=== PATIENT | male | born 1960 | race Caucasian/White ===

== ENCOUNTER 2017-03-31 08:12 | Emergency (ER) | payer BC ==
[~2017-03-31] VITALS: Ht 175.3 cm; Wt 122.9 kg
--- NOTE | 2017-03-31 08:26 | Emergency Room Report ---
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 N Clinical Suspician of Infection? N Mental Status: 1 - Regular (Normal Baseline) Sepsis Risk:Low Sepsis Risk Have you (or family members/close friends) recently traveled outside the [place]? N If Yes, where/when: Have you had exposure to infectious disease within the past month? N TB? Other? Specify: Comment The patient complains of RIGHT lower quadrant abdominal pain that began yesterday. The pain is constant. Worsened by touch and movement. He denies other symptoms including fever, vomiting, diarrhea, constipation, or urinary symptoms. No injury recalled. He last ate some snacks during the night. ALLERGIES Coded Allergies: metformin (03/31/17) History Medical History General CAD? No Angina: No MD: No Hypertension? Yes Hyperlipidemia? No CHF? No DVT? No PE? No COPD? No Asthma? No Anemia? No GERD? No Gastric ulcers? No GI Bleed? No Hernia? No Thyroid Problems? No Hypothyroidism? No CVA? No Seizures? No Diabetes? Yes Insulin Dependent: No Insulin Pump: No Home FSBS? No End Stage Renal Disease? No UTI? No Stones? No BPH? No GB Disease: No Nephritic Syndrome? No Asplenia? No Hepatitis? No Sickle Cell Disease? No Arthritis? No Migraines? No Cataracts? No Glaucoma? No MRSA? No HIV? No TB? No Anxiety? No Depression? No Cancer? No Site: N More? No Immunization Hx DT/Tetanus Unknown Surgical Hx Previous Surgery?Y KNEE HEART CATH Social History Smoking Hx Smoker: Former Smoker Tobacco: No Type Cigarettes Alcohol Alcohol: No Review of Systems All Other Systems Reviewed and Negative Constitutional denies fever Gastrointestinal abdominal pain, denies constipation, denies diarrhea, denies vomiting Genitourinary denies: dysuria, frequency. Physical Exam Vital Signs Vital Signs Date Time Temp Pulse Resp B/P Pulse O2 O2 Flow FiO2 Ox Delivery Rate 03/31 1157 98.3 85 18 132/91 99 03/31 1133 85 18 132/91 99 03/31 1105 85 18 127/93 99 03/31 0852 77 18 143/83 95 03/31 0815 98.3 83 18 139/90 95 General Appearance no apparent distress Eye Exam - bilateral eye normal exam, bilateral eye PERRL, bilateral eye EOMI Ear, Nose, Throat hearing grossly normal, normal ENT inspection Neck normal inspection, non-tender, supple, full range of motion Respiratory Status Yes: trachea midline, chest symmetrical, non tender chest. No: respiratory distress. Lung Sounds bilateral: normal breath sounds, lungs clear. Cardiovascular normal exam, regular rate/rhythm, no peripheral edema, no gallop, no JVD, no murmur, no rub, normal peripheral pulses Peripheral Pulses Pulses normal Yes Gastrointestinal normal bowel sounds, soft, no organomegaly, no guarding, no rebound, tenderness (RIGHT lower quadrant) Extremities non-tender, normal range of motion, normal inspection Neurologic alert, oriented x 3 Mental status normal mood/affect Skin intact, normal color, warm/dry Medical Decision Making LABS/Meds/Orders Pt receiving controlled substance in ED? No Results/Orders Laboratory Tests 03/31/17 0900: Urine Color STRAW, Urine Appearance CLEAR, Urine pH 6.0, Ur Specific Mc[place] <= 1.005, Urine Protein NEGATIVE, Urine Ketones NEGATIVE, Urine Blood TRACE-INTACT, Urine Nitrate NEGATIVE, Urine Bilirubin NEGATIVE, Urine Urobilinogen 0.2, Ur Leukocyte Esterase NEGATIVE, Urine RBC OCC, Urine WBC OCC, Urine Bacteria 2+, Urine Glucose 3+ H 03/31/17 0820: Amylase 35, Lipase 164 03/31/17 0820: Sodium 134 L, Potassium 4.3, Chloride 98, Carbon Dioxide 28, BUN 18, Creatinine 1.1, Estimated Creat Clear 126, Estimated GFR (MDRD) 69, Glucose 146 H, Calcium 9.0, Total Bilirubin 0.4, AST 23, ALT 56, Alkaline Phosphatase 131 H, Total Protein 8.0, Albumin 3.9, Globulin 4.1 H, Albumin/Globulin Ratio 1.0 L, WBC 10.1, RBC 5.58, Hgb 16.0, Hct 45.9, MCV 82.4, RDW 13.1, Plt Count 187, MPV 8.1, Gran % 60.0, Gran # 6.0, Lymphocytes % 32.1, Monocytes % 5.7, Eosinophils % 1.6, Basophils % 0.5, Lymphocytes # 3.2, Monocytes # 0.6, Eosinophils # 0.2, Basophils # 0.1, PUBS MCHC 34.7, MCH 28.6 Current Medication Orders Sig/Ledy Start time Last Medication Dose Route Stop Time Status Admin Sodium Chloride 1,000 ML .STK-MED ONE 03/31 1143 DC IV Sodium Chloride 1,000 ML .STK-MED ONE 03/31 1119 DC IV Sodium Chloride 1,000 ML .Q1H1M 03/31 0945 DC 03/31 IV 03/31 1045 1121 Sodium Chloride 10 ML PRN PRN 03/31 0830 DCD IV 04/01 0824 Orders Procedure Date/time Status DIET-NOTHING BY MOUTH 03/[address] ABD/PELVIS REQ 03/31 09 Active CULTURE, URINE 03/31 0900 Active URINALYSIS/COMPLETE 03/31 0826 Complete LIPASE 03/31 0825 Complete AMYLASE 03/31 0825 Complete IV SALINE LOCK 03/31 0824 Active CBC WITH AUTO DIFF 03/31 0824 Complete CHEM 12 PROFILE 03/31 0824 Complete XRAY/CT/US XRAY/CT/US CT abdomen, pelvis Comment Fax result obtained from [facility] radiologist: Normal appendix. Patchy bibasilar opacities, scar versus atelectasis. Less likely infiltrate. Neoplasia thought unlikely but follow-up suggested. Prostate seeds. Departure Departure Disposition DC Home or Self Care(routine) Clinical Impression Primary Impression: Right lower quadrant abdominal pain Condition STABLE Patient Instructions DI for Abdominal Pain-Adult Additional Instructions Additional instructions for ABDOMINAL PAIN: See your physician as soon as possible for further evaluation. Return immediately if worsening abdominal pain, vomiting, shortness of breath, fever, vomiting of blood or abdominal distention. Also follow-up the results of your CAT scan with your primary care physician. There were some densities in the bottoms of your lungs that the radiologist thought was most likely scar, however, follow-up recommended. ED Critical Care Critical Care No at [id number]
[2017-03-31 08:34] LABS: LYMPH # 3.2 K/mm3 (0.7-4.5); LYMPH % 32.1 % (10-50)
[2017-03-31 09:20] LABS: URINE BILIRUBIN - DIPSTICK NEGATIVE (NEG); URINE BLOOD TRACE-INTACT (NEG)
[2017-03-31 11:57] VITALS: BP 132/91
== END 2017-03-31 11:57 | disposition home or self-care (01) ==
LOC: ER 08:12
PROVIDERS: Emergency Medicine
DX: R10.31 Right lower quadrant pain (principal); Z87.891 Personal history of nicotine dependence; I10 Essential (primary) hypertension

== ENCOUNTER → 2017-05-13 | Outpatient (CLI) | payer BC ==
--- NOTE | 2017-05-13 13:17 | RADIOLOGY REPORT PS360 ---
FOOT-LT-3 VIEWS HISTORY: LEFT FOOT PAIN ORDERING PHYSICIAN: Yolanda LOOMIS PATIENT AGE: 57 years COMPARISON: None FINDINGS: No fracture or dislocation. No lytic or blastic change. There is normal mineralization.. The joint spaces are well-preserved. No significant degenerative/arthritic changes. No erosive changes evident. Minimal hypertrophic changes are present along the dorsal aspect of the navicular and medial cuneiform IMPRESSION: No acute finding
== END ==
LOC: RAD 11:15
DX: M79.672 Pain in left foot (principal)